=== PATIENT | male | born 1990 | race Caucasian/White ===

== ENCOUNTER 2025-01-01 15:43 | Outpatient (AMB) | payer BC, SELFPAY ==
--- NOTE | 2025-01-01 15:39 | A.OFFPC_ITS ---
Vital Signs 01/01/25 15:41 Height 5 ft 8.9 in Weight 188 lb BMI 27.8 BP 122/58 L Respiration 14 Pulse 70 Pulse Source Pulse Oximeter Temp 97.8 F Temp Source Temporal Artery Scan Pulse Oximetry (%) 99 Oxygen Delivery Method Room Air Intake Visit Reasons: establish care Pad Hand Required: No Accompanied by: Self / Same As Patient Allergies No Known Allergies Allergy (Verified 01/01/25 15:40) Tobacco use date assessed: 01/01/25 Dental Screening Dental Screen Date: 01/01/25 Did you have a dental visit in the last 12 months?: No Did you have a dental problem in the last 6 months where you did not have access to dental care?: No Was dental information given to patient?: Patient has dentist (Has appointment tomorrow ) [facility] Medical History (Updated 01/01/25 @ 16:05 by Masoud Bauman MD) Allergic rhinitis due to allergen Family History (Updated 01/01/25 @ 15:47 by MINE Trejo) Father Leukemia Mother No problems noted. Social History (Updated 01/01/25 @ 15:48 by MINE Trejo) Housing: House Alcohol intake: current Alcohol intake frequency: a few times a week Patient Tobacco Use Status: Never used Tobacco service: No Current occupational status: employed Cognitive needs: No Hearing needs: No Vision needs: Yes (rx glasses) Questionnaire PHQ-9 Over the last 2 weeks, how often have you been bothered by any of the following problems? 1. Little interest or pleasure in doing things: not at all 2. Feeling down, depressed, or hopeless: not at all 3. Trouble falling or staying asleep, or sleeping too much: not at all 4. Feeling tired or having little energy: not at all 5. Poor appetite or overeating: not at all 6. Feeling bad about yourself - or that you are a failure or have let yourself or your family down: not at all 7. Trouble concentrating on things, such as reading the newspaper or watching te levision: not at all 8. Moving or speaking so slowly that other people could have noticed. Or the opposite - being so fidgety or restless that you have been moving around a lot more than usual: not at all 9. Thoughts that you would be better off or of hurting yourself in some way: not at all Total score: 0 Source: Developed by Drs. Rolando Arredondo, Anai Freedman, Narendra Casanova and colleagues, with an educational jose from [employer]. Thrive Questionnaire Date Thrive assessed: 01/01/25 I am a: Patient What is your living situation today?: I have a steady place to live Within the past 12 months, did the food you bought not last and you didn't have the money to get more?: Never true Within the past 12 months, did you worry whether your food would run out before you got money to buy more?: Never true Do you have trouble paying for medicines?: No Do you have trouble getting transportation to medical appointments?: No Do you have trouble paying your heating and electricity bill?: No Do you have trouble taking care of your child, family member or friend?: No Do you have trouble with day-to-day activities such as bathing, preparing meals, shopping, managing finances, etc.?: No Are you currently unemployed and looking for a job?: No Are you interested in more education?: No Please select the resources that you would like help with: None THRIVE Score: 0 AUDIT C Alcohol Use Questionnaire (AUDIT-C) 1. How often do you have a drink containing alcohol?: 2-3 times a week 2. How many drinks containing alcohol do you have on a typical day when you are drinking?: 1 or 2 3. How often do you have six or more drinks on one occasion?: Never Total Score: 3 KETURAH-7 AMB Questionnaire KETURAH-7 Date KETURAH - 7 assessed: 01/01/25 Feeling nervous, anxious, or on edge: 0 = Not at all Not being able to stop or control worryin = Not at all Worrying too much about different things: 0 = Not at all Trouble relaxin = Not at all Being so restless that it is hard to sit still: 0 = Not at all Becoming easily annoyed or irritable: 0 = Not at all Feeling afraid as if something awful might happen: 0 = Not at all Total KETURAH-7 score (0-4 normal; 5-9 mild; 10-14 moderate; 15-21 severe): 0 Source: Developed by Drs. Rolando Arredondo, Anai Freedman, Narendra Casanova and colleagues, with an educational jose from [employer]. Physical exam (Primary Care) Vital Signs: Last Vital Signs Temp 97.8 F 01/01/25 15:41 Pulse 70 01/01/25 15:41 Resp 14 01/01/25 15:41 BP 122/58 L 01/01/25 15:41 Pulse Ox 99 01/01/25 15:41 Oxygen Delivery Method Room Air 01/01/25 15:41 BMI result Body Mass Index 27.8 Tobacco/Smoking Status: Tobacco use Status Tobacco use date assessed 01/01/25 01/01/25 15:48 Patient Tobacco Use Status Never used Tobacco 01/01/25 15:48 PHQ-9: PHQ-9 Score PHQ-9: Total score 0 01/01/25 15:48 Thrive Assessment: Date of Thrive Assessment Date Thrive assessed 01/01/25 01/01/25 15:48 Coding Level of Care Code New Pt Prev Care 40-64y(33366) Diagnoses Allergic rhinitis due to allergen J30.9 Hyperlipidemia E78.5 Annual physical exam Z00.00 Assessment & Plan Assessment & Plan (1) Allergic rhinitis due to allergen: Code(s): J30.9 - Allergic rhinitis, unspecified Category: Medical Plan: Appt for an bacteriology research assistant made (2) Hyperlipidemia: Code(s): E78.5 - Hyperlipidemia, unspecified Plan: BW added. Will call with results (3) Annual physical exam: Code(s): Z00.00 - Encounter for general adult medical examination without abnormal findings Plan History of Present Illness - The patient is a 34-year-old male presenting for a general physical examination with a focus on allergies. - Allergic rhinitis primarily affects the patient during spring and fall, with a significant exacerbation in the spring. He previously used Montelukast for symptom control but experienced mood changes upon cessation. - Currently uses Zyrtec daily and Astopro nasal spray occasionally but reports Flonase is less effective. - Noted allergies include trees and dust mites, with no molds implicated in past prick tests. The patient is considering allergy shots. - Onychomycosis is present on multiple toes with prior topical therapy unsuccessful. Family history of severe toenail fungus is noted. - Past surgical history involves management of a perirectal abscess and subsequent anal fistula, which are now resolved but may require future attention. 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 - Marital status: , no children yet. - Alcohol use: Occasional, not to excess. - Smoking history: Smoked in the past but not currently. - Family history: Father with severe toenail fungus. Review of Systems - ENT: Reports seasonal allergic rhinitis exacerbated by pollen and dust mites. Denies current use of Montelukast. - Dermatologic: Reports history of onychomycosis affecting toenails. - Psychiatric: Reports mood alterations with past cessation of Montelukast. - Gastrointestinal: Denies current symptoms post-treatment of fistula. Reports past perirectal abscess treatment. Physical Exam General: Cooperative and healthy appearing Nutritional Appearance: Well nourished Orientation/consciousness: Patient oriented x3 Limitations: No limitations Head: Normal to inspection General: Appearance normal, both eyes and all related structures Neck: Normal visual inspection Chest: Normal palpation of entire chest wall Respiratory: N ormal respiratory effort Neurology: Patient oriented x3, no halos around lights, vision okay for driving. Results - Allergy skin prick tests: Positive for trees and dust mites. Plan 1. Allergic Rhinitis - Daily Zyrtec and occasional Astopro nasal spray. Referral to bacteriology research assistant for potential allergy shots. 2. Mood Change Related To Montelukast Cessation - Montelukast discontinued and patient educated regarding mood side effects. 3. Onychomycosis - Referral to ice guard tester for management of toenail fungus. 4. History Of Perirectal Abscess And Anal Fistula - Aware of recurrence potential, no current symptoms reported. Discussion Notes I discussed with the patient that his allergic rhinitis is likely contributing to his concern due to the significant seasonal exacerbation. We reviewed the effectiveness of current treatments like Zyrtec and Astopro and considered allergy shots as an additional line of management. I emphasized that Montelukast could have cognitive or mood-related side effects, which he reported experiencing upon discontinuation. Regarding his onychomycosis, I explained that systemic antifungal therapy could assist but was cautious about its liver implications, prompting a referral to a ice guard tester. As for the prior perirectal abscess and anal fistula, I noted the eradication of symptoms post-surgical intervention but reiterated the potential for recurrence, advising vigilance for symptoms. Patient Instructions - Take Zyrtec daily and use Astopro nasal spray as needed. - Follow up with the bacteriology research assistant for potential allergy shots. - Monitor any mood changes; Montelukast is discontinued. - Visit the ice guard tester for toenail fungus management. - Watch for any return of symptoms previously associated with perirectal abscess and fistula and seek evaluation if they recur. - Have fasting blood work done as instructed. Orders: Orders Complete Blood Count no Diff Today E78.5 - Hyperlipidemia, unspecified, J30.9 - Allergic rhinitis, unspecified, Z00.00 - Encounter for general adult medical examination without abnormal findings Thyroid Stimulating Hormone Today E78.5 - Hyperlipidemia, unspecified, J30.9 - Allergic rhinitis, unspecified, Z00.00 - Encounter for general adult medical examination without abnormal findings UA and rflx microscopic Today E78.5 - Hyperlipidemia, unspecified, J30.9 - Allergic rhinitis, unspecified, Z00.00 - Encounter for general adult medical examination without abnormal findings Basic Metabolic Panel Today E78.5 - Hyperlipidemia, unspecified, J30.9 - Allergic rhinitis, unspecified, Z00.00 - Encounter for general adult medical examination without abnormal findings Liver Panel Today E78.5 - Hyperlipidemia, unspecified, J30.9 - Allergic rhinitis, unspecified, Z00.00 - Encounter for general adult medical examination without abnormal findings Lipid Panel Today E78.5 - Hyperlipidemia, unspecified, J30.9 - Allergic rhinitis, unspecified, Z00.00 - Encounter for general adult medical examination without abnormal findings Referrals Podiatry Referral B35.1 - Tinea unguium Allergy & Immunology Referral J30.9 - Allergic rhinitis, unspecified
[2025-01-01 15:41] VITALS: BP 122/58; PULSE 70; RESP 14; TEMP 36.6; O2SAT 99; BMI 27.8
--- OUTSIDE RECORDS SUMMARY | 2025-01-01 17:01 | XMS_ITS | Clinical Summary ---
Author Organization Formerly [facility] Address [address] [place] [address] Care Team Providers Care Division Traffic Superintendent Name Role Phone Horacio Ott MD Primary Care Provider [phone]- [phone] Allergies Active Allergy Reactions Criticality Noted Date Comments Penicillins 10/07/2017 Medications Medication Sig Dispensed Refills Start Date End Date Status IRON PO Take by mouth. 0 Active FIBER PO Take by mouth. 0 Active Active Problems Problem Noted Date Diagnosed Date Rectal discomfort 07/20/2018 BRBPR (bright red blood per rectum) 07/20/2018 Anal fissure 10/07/2017 Iron deficiency anemia 10/07/2017 Social History Tobacco Use Types Packs/Day Years Used Date Smoking Tobacco: Never Assessed Sex and Gender Information Value Date Recorded Sex Assigned at Not on file Gender Identity Not on file Sexual Orientation Not on file Last Filed Vital Signs Vital Sign Reading Time Taken Comments Blood Pressure 122/64 07/20/2018 10:29 AM EST Pulse 72 07/20/2018 10:29 AM EST Temperature 37.1 ??C (98.7 ??F) 07/20/2018 10:[address] Respiratory Rate - - Oxygen Saturation 97% 10/07/2017 1:29 PM EST Inhaled Oxygen Concentration - - Weight 83.9 kg (185 lb) 07/20/2018 10:29 AM EST Height 176.5 cm (5' 9.5 ) 07/20/2018 10:29 AM ES T Body Mass Index 26.93 07/20/2018 10:29 AM EST Plan of Treatment Health Maintenance Due Date Last Done Comments Hepatitis B Vaccines (1 of 3 - 3-dose series) 1991 Hepatitis C Screening 1991 COVID-19 Vaccine (#1) 1991 Depression Screening 2003 Preventative Health Evaluation 2009 DTap / Tdap / Td (1 - Tdap) 2010 Influenza Vaccine (#1) 2024 Pneumococcal Vaccine Aged Out No long er eligible based on patient's age to complete this topic RSV Ped < 20 months Aged Out No longe r eligible based on patient's age to complete this topic Care Teams Division Traffic Superintendent Relationship Specialty Start Date End Date Horacio Ott MD [address] [facility] [address] [place] [address] PCP - General Internal Medicine 10/10/17
== END 2025-01-01 16:06 | disposition home or self-care (01) ==
LOC: HO.HMCSH 15:43
PROVIDERS: PCP Internal Medicine; Visit Provider Internal Medicine
DX: J30.9 Allergic rhinitis, unspecified (principal); E78.5 Hyperlipidemia, unspecified; Z00.00 Encounter for general adult medical examination without abnormal findings

== ENCOUNTER → 2025-01-01 15:43 | Outpatient (BNVA) | payer BC, SELFPAY | PROVIDERS: PCP Internal Medicine; Visit Provider Internal Medicine ==